=== PATIENT | female | born 1935 | race Caucasian/White ===

== ENCOUNTER 2019-07-10 12:22 | Outpatient (CLI) | payer MEDICARE, OTHER, SELFPAY ==
--- NOTE | 2019-07-10 12:32 | XR_ITS ---
WS: [id number] FEMUR RIGHT TECHNIQUE: 2 views of the right femur CLINICAL INFORMATION: inflammatory arthritis COMPARISON: None. FINDINGS: Normal anatomic alignment. No acute fractures. Hypertrophic patella. Normal visualized soft tissues. Vascular calcification. Mottled sclerosis involving the mid and distal femoral diaphysis has a nonagg ressive appearance and likely benign. XR/XR femur RT min 2V* [id number] IMPRESSION: Hypertrophic patella. No femoral fractures.
--- NOTE | 2019-07-10 12:32 | XR_ITS ---
WS: [id number] PELVIS TECHNIQUE: 1 view(s) of the pelvis CLINICAL INFORMATION: inflammatory arthritis COMPARISON: None. FINDINGS: Osteopenia. Pelvic phleboliths. 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 Normal pubic rami. Degenerative arthritis lower lumbar spine. No acute fractures. XR/XR pelvis 1-2V* [id number] IMPRESSION: Osteopenia. No acute pelvic findings.
--- NOTE | 2019-07-10 13:20 | XR_ITS ---
WS: [id number] FEMUR LEFT TECHNIQUE: 2 views of the left femur CLINICAL INFORMATION: States severe left pain hip to knee. COMPARISON: None. FINDINGS: Left femur is normal in appearance. No acute fractures. Mild degenerative arthritis left hip. Pelvic phleboliths. Vascular calcification. Benign-appearing small sclerotic foci in the distal femur. Hyper trophic patella. XR/XR femur LT min 2V* [id number] IMPRESSION: No acute left femur findings.
== END 2019-07-10 12:23 | disposition home or self-care (01) ==
PROVIDERS: Family Provider Family Medicine; PCP Family Medicine; Visit Provider Internal Medicine Rheumatology
DX: M25.552 Pain in left hip (principal); M85.88 Other specified disorders of bone density and structure, other site
CPT/HCPCS: 36415; 72170; 73552; 80076; 82565; 85025; 85651; 86140